=== PATIENT | male | born 1945 | race Hispanic/Latino ===

== ENCOUNTER 2020-03-19 08:09 | Observation (INO) | payer OTHER ==
[2020-03-17 10:44] LABS: BASOPHILS % (AUTO) 0.5 % (0.0-5.0); EOSINOPHILS % (AUTO) 0.7 % (0.0-8.0); HEMATOCRIT 37.9 % (42-54); LYMPHOCYTES % (AUTO) 14.4 % (21.0-51.0); MEAN CORPUSCULAR HEMOGLOBIN 27.6 pg (27.0-33.0); MEAN CORPUSCULAR HGB CONC 31.4 g/dL (32.0-36.0); MEAN CORPUSCULAR VOLUME 87.9 fL (79-99); MONOCYTES % (AUTO) 11.7 % (3.0-13.0); NEUTROPHILS % (AUTO) 72.3 % (40.0-77.0); PLATELET COUNT (AUTO) 203 K/uL (130-400); RED BLOOD CELL COUNT(AUTO) 4.31 MIL/uL (4.50-6.20); RED CELL DISTRIBUTION WIDTH 14.6 % (11.0-15.5)
[2020-03-17 10:54] LABS: CREATININE 1.8 mg/dL (0.5-1.5); POTASSIUM 5.5 mmol/L (3.5-5.1)
[2020-03-17 10:58] LABS: INR 0.95 (0.85-1.15); PARTIAL THROMBOPLASTIN TIME 27.3 SEC (26.3-35.5); PROTHROMBIN TIME 10.3 SEC (9.6-11.6)
--- NOTE | 2020-03-18 12:23 | NUR ---
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
[2020-03-19] VITALS (10 sets, daily range): BP systolic 116–150; BP diastolic 59–69
[~2020-03-19] VITALS: Ht 180.3 cm; Wt 93.5 kg
[2020-03-19] MEDS: CEFAZOLIN SODIUM 1 GM VIAL IVP SCH ×2 (05:00→19:11)
[~2020-03-19 08:09] MED LIST: ASPI-556 PO; BENA20TA10 PO; ESCI10TA54 PO; GLIP10TA9 PO; INSU300I SQ; LEVO5TAB13 PO; PRAM1TAB7 PO; PREG150C46 PO; SIMV-43 PO
[2020-03-19] MEDS ORDERED: SODIUM CHLORIDE 0.9% 1000ML 1,000 ML IV ONE (09:43)
[2020-03-19] MEDS ORDERED: MEPERIDINE-PF 25 MG/ML SYG ONE ×3 (10:09→10:48)
[2020-03-19] MEDS ORDERED: CEFAZOLIN SODIUM 1 GM VIAL ONE (10:09)
[2020-03-19] MEDS ORDERED: MIDAZOLAM HCL 1 MG/ML 2ML VIAL ONE ×3 (10:09→10:48)
[2020-03-19] MEDS ORDERED: BUPIVACAINE/PF 0.25% 30ML VIAL IJ ONE (10:09)
[2020-03-19] MEDS ORDERED: LIDOCAINE HCL 1% MDV 50ML VIAL ONE (10:09)
[2020-03-19] MEDS ORDERED: ACETAMINOPHEN-CODEINE 300/30MG TAB PO PRN (11:45)
--- NOTE | 2020-03-19 12:00 | NUR ---
CREDIT RISK ANALYST PT RECEIVED FROM CREDIT RISK ANALYST BY REPORT BY FRANK PELAEZ. PT IS AAX3, DRESSING IS DRY AND INTACT, VS STABLE WILL CONTINUE TO MONITOR
[2020-03-19] MEDS ORDERED: ACETAMINOPHEN 325 MG TAB PO PRN (15:15)
[2020-03-19] MEDS ORDERED: ONDANSETRON HCL 4 MG/2 ML VIAL IVP PRN (15:15)
[2020-03-19] MEDS: PREGABALIN 75 MG CAPSULE PO SCH (15:19)
[2020-03-19] MEDS: GLIPIZIDE XL 10MG TAB PO SCH (15:19)
[2020-03-19] MEDS: CITALOPRAM 20 MG TABLET PO SCH (15:19)
[2020-03-19] MEDS ORDERED: SODIUM POLYSTYRENE SULFONATE 15 GM/60 ML ML PO SCH (16:00)
[2020-03-19] MEDS ORDERED: PRAMIPEXOLE DI-HCL 0.25 MG TABLET ONE (19:24)
--- NOTE | 2020-03-19 20:00 | NUR ---
assessment note patient awake, alert, ox3, no sob, c/o pain to left shoulder, see pain assessment and treatment, left upper chest wall dressing d/i, left arm sling intact and adjusted, teaching given to patient regarding importance of arm sling, teach plan of care and expected outcome, patient verbalizes understanding via teach back
[2020-03-19] MEDS ORDERED: INSULIN GLARGINE 100 UNITS/ML 10 ML VIAL SQ SCH (21:00)
[2020-03-19] MEDS ORDERED: PRAMIPEXOLE DI-HCL 0.25 MG TABLET PO SCH (21:00)
[2020-03-19] MEDS ORDERED: LEVOCETIRIZINE DIHYDROCHLORIDE 5 MG PO SCH (21:00)
[2020-03-20] MEDS ORDERED: SODIUM POLYSTYRENE SULFONATE 15 GM/60 ML ML ONE (00:52)
[2020-03-20] MEDS ORDERED: SODIUM POLYSTYRENE SULFONATE 15 GM/60 ML ML PO SCH (01:00)
[2020-03-20 03:36] VITALS: BP 123/62
[2020-03-20] MEDS: INSULIN HUMULIN R 100 UNIT/ML 3ML SQ SCH ×3 (05:41→16:30)
[2020-03-20 06:26] LABS: BASOPHILS % (AUTO) 0.7 % (0.0-5.0); EOSINOPHILS % (AUTO) 3.5 % (0.0-8.0); HEMATOCRIT 34.9 % (42-54); MEAN CORPUSCULAR HEMOGLOBIN 27.3 pg (27.0-33.0); MEAN CORPUSCULAR HGB CONC 30.9 g/dL (32.0-36.0); MEAN CORPUSCULAR VOLUME 88.1 fL (79-99); MONOCYTES % (AUTO) 10.6 % (3.0-13.0); NEUTROPHILS % (AUTO) 68.9 % (40.0-77.0); PLATELET COUNT (AUTO) 196 K/uL (130-400); RED BLOOD CELL COUNT(AUTO) 3.96 MIL/uL (4.50-6.20); RED CELL DISTRIBUTION WIDTH 14.6 % (11.0-15.5); WHITE BLOOD COUNT (AUTO) 7.1 K/uL (4.8-10.8)
[2020-03-20 06:39] LABS: ALBUMIN 2.8 g/dL (3.5-5.0); BILIRUBIN,TOTAL 0.3 mg/dL (0.2-1.0); CREATININE 1.8 mg/dL (0.5-1.5); POTASSIUM 5.4 mmol/L (3.5-5.1); TOTAL PROTEIN, SERUM 6.7 g/dL (6.0-8.3)
[2020-03-20 07:55] VITALS: BP 154/79
[2020-03-20] MEDS ORDERED: FAMOTIDINE 20MG TAB 20 MG TAB PO SCH (09:00)
[2020-03-20] MEDS ORDERED: BENAZEPRIL HCL 10 MG TABLET PO SCH (09:00)
[2020-03-20] MEDS: PREGABALIN 75 MG CAPSULE PO SCH (09:30)
[2020-03-20] MEDS: CITALOPRAM 20 MG TABLET PO SCH (09:31)
[2020-03-20] MEDS: GLIPIZIDE XL 10MG TAB PO SCH (09:32)
[2020-03-20 11:26] VITALS: BP 147/74
--- NOTE | 2020-03-20 11:27 | NUR ---
[id number] patient signed CR Letter, I faxed CR Letter to [phone] and placed in chart under consent tab.
--- NOTE | 2020-03-20 15:42 | NUR ---
D/C PT AAOX3 VS STABLE DRESSING IS DRY AND INTACT. PT VOICES NO PAIN AT THIS TIME, SLING IS ON THE LEFT ARM, 4X4 AND TEGADERM GIVEN TO PATIENT TO TAKE HOME TO CHANGE DRESSING. F/U APPT TO SEE DR. DICKERSON IN 7-10 DAYS, PRIMARY F/U IN 2-3 DAYS. PT WILL BE LEAVING BY WHEELCHAIR IN PVT CAR, D/C INSTRUCTIONS GIVEN TO PATIENT.
== END 2020-03-20 16:30 | disposition home or self-care (01) ==
LOC: DAH 08:09 → DAHIP 08:10 → 4BH 12:00
PROVIDERS: ADMIT Internal Medicine; ATTEND Internal Medicine
DX: I44.2 Atrioventricular block, complete (principal); R42 Dizziness and giddiness; E87.5 Hyperkalemia; R00.1 Bradycardia, unspecified; I10 Essential (primary) hypertension; E11.9 Type 2 diabetes mellitus without complications; I25.10 Atherosclerotic heart disease of native coronary artery without angina pectoris; E11.65 Type 2 diabetes mellitus with hyperglycemia; M62.82 Rhabdomyolysis; N17.9 Acute kidney failure, unspecified; Z95.2 Presence of prosthetic heart valve; Z95.1 Presence of aortocoronary bypass graft
CPT/HCPCS: 33208; 36415 ×3; 71045; 80048; 80053; 82948 ×5; 84132 ×2; 85025 ×2; 85610; 85730; 93005; 96360; 96361; A4215; A4216; A4221; A4222; A4223 ×3; A4606; A4649; A4663; C1785; C1898 ×2; G0378 ×17; J0690; J1815; J2175 ×3; J2250 ×3; J3490 ×2; J7030; 99156; 99157

== ENCOUNTER → 2023-01-24 | Outpatient (CLI) | payer OTHER, MEDICARE ==
[~2023-01-24] MED LIST changes: +BENA-8 PO; -BENA20TA10 PO; +ESCI-8 PO; -ESCI10TA54 PO
== END | disposition home or self-care (01) ==
LOC: SHCH 10:14
PROVIDERS: ATTEND Internal Medicine Cardiovascular Disease
DX: I87.2 Venous insufficiency (chronic) (peripheral) (principal); Z98.890 Other specified postprocedural states
CPT/HCPCS: 93971